=== PATIENT | male | born 1930 | race Hispanic/Latino ===

== ENCOUNTER 2017-12-19 16:41 | Emergency (ER) | payer OTHER ==
[2017-12-19 18:04] LABS: APPEARANCE,URINE Clear (CLEAR); BILIRUBIN,URINE Negative (NEGATIVE); COLOR,URINE Yellow (YELLOW); GLUCOSE, URINE (UA) Negative (NEGATIVE); KETONES,URINE Negative (NEGATIVE); LEUKOCYTE ESTERASE ,URINE Trace (NEGATIVE); NITRATE,URINE Negative (NEGATIVE); OCCULT BLOOD,URINE Negative (NEGATIVE); PROTEIN,URINE Negative (NEGATIVE); UROBILINOGEN,URINE 0.2 mg/dL (0.2-1.0)
[2017-12-19 18:15] LABS: BACTERIA,URINE Rare /HPF (None Seen); RBC,URINE None Seen /HPF (0-1); WBC,URINE 0-1 /HPF (0-1)
[2017-12-19 18:39] LABS: BASOPHILS % (AUTO) 2.5 % (0.0-5.0); HEMATOCRIT 32.7 % (42-54); LYMPHOCYTES % (AUTO) 25.4 % (21.0-51.0); MEAN CORPUSCULAR HEMOGLOBIN 28.7 pg (27.0-33.0); MEAN CORPUSCULAR HGB CONC 32.1 g/dL (32.0-36.0); MEAN CORPUSCULAR VOLUME 89.6 fL (79-99); NEUTROPHILS % (AUTO) 58.1 % (40.0-77.0); NUCLEATED RED BLOOD CELLS 0.1 % (0.0-0.19); PLATELET COUNT (AUTO) 245 K/uL (130-400); RED BLOOD CELL COUNT(AUTO) 3.65 MIL/uL (4.50-6.20); RED CELL DISTRIBUTION WIDTH 14.3 % (11.0-15.5)
[2017-12-19 18:53] LABS: CREATININE 0.9 mg/dL (0.5-1.5)
[2017-12-19 18:58] LABS: ALBUMIN 2.9 g/dL (3.5-5.0); BILIRUBIN,TOTAL 0.2 mg/dL (0.2-1.0); TOTAL PROTEIN, SERUM 7.1 g/dL (6.0-8.3)
== END 2017-12-19 20:52 | disposition home or self-care (01) ==
LOC: EDH 16:41
DX: K59.00 Constipation, unspecified (principal); I10 Essential (primary) hypertension; E78.5 Hyperlipidemia, unspecified; Z87.442 Personal history of urinary calculi; F03.90 Unspecified dementia, unspecified severity, without behavioral disturbance, psychotic disturbance, mood disturbance, and anxiety
CPT/HCPCS: 36415; 74176; 80053; 81001; 85025

== ENCOUNTER 2018-01-06 09:33 | Emergency (ER) | payer OTHER ==
[2018-01-06 09:56] LABS: EOSINOPHILS % (AUTO) 1.7 % (0.0-8.0); HEMATOCRIT 29.7 % (42-54); MEAN CORPUSCULAR HEMOGLOBIN 28.7 pg (27.0-33.0); MEAN CORPUSCULAR HGB CONC 32.8 g/dL (32.0-36.0); MEAN CORPUSCULAR VOLUME 87.4 fL (79-99); MONOCYTES % (AUTO) 6.8 % (3.0-13.0); NEUTROPHILS % (AUTO) 69.5 % (40.0-77.0); PLATELET COUNT (AUTO) 178 K/uL (130-400); RED CELL DISTRIBUTION WIDTH 14.6 % (11.0-15.5); WHITE BLOOD COUNT (AUTO) 4.3 K/uL (4.8-10.8)
[2018-01-06 10:01] LABS: CREATININE 1.1 mg/dL (0.5-1.5); POTASSIUM 4.2 mmol/L (3.5-5.1)
[2018-01-06 10:06] LABS: ALBUMIN 2.7 g/dL (3.5-5.0); BILIRUBIN,TOTAL 0.5 mg/dL (0.2-1.0); TOTAL PROTEIN, SERUM 6.7 g/dL (6.0-8.3)
[2018-01-06 10:10] LABS: APPEARANCE,URINE Cloudy (CLEAR); BILIRUBIN,URINE Negative (NEGATIVE); COLOR,URINE Yellow (YELLOW); GLUCOSE, URINE (UA) Negative (NEGATIVE); KETONES,URINE Negative (NEGATIVE); LEUKOCYTE ESTERASE ,URINE Trace (NEGATIVE); NITRATE,URINE Negative (NEGATIVE); OCCULT BLOOD,URINE Negative (NEGATIVE); PROTEIN,URINE POS 1+ (NEGATIVE); UROBILINOGEN,URINE 0.2 mg/dL (0.2-1.0)
[2018-01-06 10:30] LABS: BACTERIA,URINE Rare /HPF (None Seen); RBC,URINE None Seen /HPF (0-1); SQUAMOUS EPITHELIAL CELL,UR Few /HPF (0-2); WBC,URINE 0-1 /HPF (0-1)
[2018-01-06 10:31] LABS: AMORPHOUS SEDIMENT,UR Few /LPF (None Seen)
== END 2018-01-06 12:46 | disposition home or self-care (01) ==
LOC: EDH 09:33
DX: N39.8 Other specified disorders of urinary system (principal); D64.9 Anemia, unspecified; G30.9 Alzheimer's disease, unspecified; F02.80 Dementia in other diseases classified elsewhere, unspecified severity, without behavioral disturbance, psychotic disturbance, mood disturbance, and anxiety; I25.10 Atherosclerotic heart disease of native coronary artery without angina pectoris; E78.5 Hyperlipidemia, unspecified; I10 Essential (primary) hypertension; Z87.442 Personal history of urinary calculi; Z88.6 Allergy status to analgesic agent; Z79.899 Other long term (current) drug therapy
CPT/HCPCS: 36415; 80053; 81001; 85025

== ENCOUNTER 2018-01-07 09:56 | Inpatient (IN) | payer OTHER ==
[~2018-01-07] VITALS: Ht 157.5 cm; Wt 62.7 kg
[2018-01-07 11:11] LABS: BASOPHILS % (AUTO) 0.8 % (0.0-5.0); EOSINOPHILS % (AUTO) 2.2 % (0.0-8.0); HEMATOCRIT 30.9 % (42-54); LYMPHOCYTES % (AUTO) 13.2 % (21.0-51.0); MEAN CORPUSCULAR HEMOGLOBIN 29.1 pg (27.0-33.0); MEAN CORPUSCULAR HGB CONC 33.3 g/dL (32.0-36.0); MEAN CORPUSCULAR VOLUME 87.5 fL (79-99); MONOCYTES % (AUTO) 5.4 % (3.0-13.0); NEUTROPHILS % (AUTO) 78.4 % (40.0-77.0); NUCLEATED RED BLOOD CELLS 0.1 % (0.0-0.19); PLATELET COUNT (AUTO) 212 K/uL (130-400); RED BLOOD CELL COUNT(AUTO) 3.53 MIL/uL (4.50-6.20); RED CELL DISTRIBUTION WIDTH 14.9 % (11.0-15.5); WHITE BLOOD COUNT (AUTO) 5.7 K/uL (4.8-10.8)
[2018-01-07 11:13] LABS: ALBUMIN 2.6 g/dL (3.5-5.0); BILIRUBIN,TOTAL 0.7 mg/dL (0.2-1.0); TOTAL PROTEIN, SERUM 7.2 g/dL (6.0-8.3)
[2018-01-07 11:49] LABS: APPEARANCE,URINE Clear (CLEAR); BILIRUBIN,URINE Negative (NEGATIVE); COLOR,URINE Yellow (YELLOW); GLUCOSE, URINE (UA) Negative (NEGATIVE); KETONES,URINE Trace mg/dL (NEGATIVE); LEUKOCYTE ESTERASE ,URINE Negative (NEGATIVE); NITRATE,URINE Negative (NEGATIVE); OCCULT BLOOD,URINE Small (NEGATIVE); PROTEIN,URINE POS 1+ (NEGATIVE)
[2018-01-07 12:00] LABS: BACTERIA,URINE Rare /HPF (None Seen); MUCUS,URINE Few LPF (None Seen); WBC,URINE None Seen /HPF (0-1)
[2018-01-07] MEDS ORDERED: ZOSYN 3.375GM+NS 50ML 50 ML IV ONE (13:07)
[2018-01-07] MEDS ORDERED: SODIUM CHLORIDE 0.9% 100 ML IV ONE (13:08)
[2018-01-07] MEDS: SODIUM CHLORIDE 0.9% 1000ML 1,000 ML IV SCH (14:10)
[2018-01-07] MEDS ORDERED: MEPERIDINE-PF 25 MG/ML SYG IV PRN (14:15)
[2018-01-07] MEDS ORDERED: SODIUM CHLORIDE 0.9% 1000ML 1,000 ML IV ONE (15:52)
[2018-01-07] MEDS ORDERED: ENOXAPARIN SODIUM 30 MG/0.3 ML SQ ONE (15:52)
[2018-01-07] MEDS ORDERED: PANTOPRAZOLE SODIUM 40 MG TABLET.DR PO ONE (15:53)
[2018-01-07] MEDS: FAMOTIDINE/PF 20 MG/2 ML VIAL IV SCH (21:00)
[2018-01-07] MEDS: METRONIDAZOLE 500MG/100ML BAG 100 ML IV SCH (21:00)
[2018-01-07] MEDS ORDERED: METRONIDAZOLE 500MG/100ML BAG 100 ML ONE (21:25)
[2018-01-07] MEDS ORDERED: FAMOTIDINE/PF 20 MG/2 ML VIAL IV ONE (21:25)
[2018-01-07] MEDS: ZOSYN 3.375GM+NS 50ML 50 ML IV SCH (22:00)
[2018-01-07 22:06] VITALS: BP 154/94
[2018-01-07] MEDS: LEVOFLOXACIN 500 MG/D5W 100 ML 100 ML IV SCH (23:29)
[2018-01-07 23:42] VITALS: BP 128/67
[2018-01-08] VITALS (7 sets, daily range): BP systolic 102–125; BP diastolic 50–68
[2018-01-08] MEDS: METRONIDAZOLE 500MG/100ML BAG 100 ML IV SCH ×2 (03:51→12:53)
[2018-01-08 04:09] LABS: BASOPHILS % (AUTO) 0.8 % (0.0-5.0); EOSINOPHILS % (AUTO) 0.8 % (0.0-8.0); HEMATOCRIT 28.3 % (42-54); LYMPHOCYTES % (AUTO) 12.4 % (21.0-51.0); MEAN CORPUSCULAR HEMOGLOBIN 29.1 pg (27.0-33.0); MEAN CORPUSCULAR HGB CONC 33.5 g/dL (32.0-36.0); MEAN CORPUSCULAR VOLUME 86.9 fL (79-99); MONOCYTES % (AUTO) 8.7 % (3.0-13.0); NEUTROPHILS % (AUTO) 77.3 % (40.0-77.0); PLATELET COUNT (AUTO) 214 K/uL (130-400); RED BLOOD CELL COUNT(AUTO) 3.26 MIL/uL (4.50-6.20); RED CELL DISTRIBUTION WIDTH 14.8 % (11.0-15.5); WHITE BLOOD COUNT (AUTO) 4.9 K/uL (4.8-10.8)
[2018-01-08 04:20] LABS: ALBUMIN 2.3 g/dL (3.5-5.0); BILIRUBIN,TOTAL 0.4 mg/dL (0.2-1.0); POTASSIUM 3.7 mmol/L (3.5-5.1); TOTAL PROTEIN, SERUM 6.5 g/dL (6.0-8.3)
[2018-01-08] MEDS: ZOSYN 3.375GM+NS 50ML 50 ML IV SCH (04:44)
[2018-01-08] MEDS ORDERED: PANTOPRAZOLE SODIUM 40 MG TABLET.DR PO SCH (09:00)
[2018-01-08] MEDS: FAMOTIDINE/PF 20 MG/2 ML VIAL IV SCH ×2 (09:19→21:25)
[2018-01-08] MEDS: ENOXAPARIN SODIUM 30 MG/0.3 ML SQ SCH (09:19)
[2018-01-08] MEDS ORDERED: ZOSYN 3.375GM+NS 50ML 50 ML IV SCH (13:00)
[2018-01-08] MEDS ORDERED: ISOS30TA6 PO (16:32)
[2018-01-08] MEDS ORDERED: DONE5TAB33 PO (16:32)
[2018-01-08] MEDS ORDERED: TAMS0.4C32 PO (16:32)
[2018-01-08] MEDS ORDERED: PRAV80TA21 PO (16:32)
[2018-01-08] MEDS ORDERED: TRAZ-187 PO (16:32)
[2018-01-08] MEDS ORDERED: PARO30TA60 PO (16:32)
[2018-01-08] MEDS ORDERED: ALLO100T PO (16:32)
[2018-01-08] MEDS ORDERED: TRAZODONE HCL 100 MG TABLET PO SCH (21:00)
[2018-01-08] MEDS: Pravastatin Sodium 80 MG PO SCH (21:00)
[2018-01-08] MEDS: LEVOFLOXACIN 500 MG/D5W 100 ML 100 ML IV SCH (21:24)
[2018-01-08] MEDS: TAMSULOSIN HCL 0.4 MG CAP.ER.24H PO SCH (21:25)
[2018-01-08] MEDS: SODIUM CHLORIDE 0.9% 1000ML 1,000 ML IV SCH (21:25)
[2018-01-08] MEDS: PAROXETINE HCL 20 MG TABLET PO SCH (21:27)
[2018-01-08] MEDS: LIDOCAINE 5% TOPICAL PATCH TP SCH (23:18)
[2018-01-09 03:00] VITALS: BP 122/65
[2018-01-09 04:18] LABS: HEMATOCRIT 28.2 % (42-54); MEAN CORPUSCULAR HEMOGLOBIN 29.2 pg (27.0-33.0); MEAN CORPUSCULAR HGB CONC 33.3 g/dL (32.0-36.0); MEAN CORPUSCULAR VOLUME 87.8 fL (79-99); PLATELET COUNT (AUTO) 246 K/uL (130-400); RED BLOOD CELL COUNT(AUTO) 3.22 MIL/uL (4.50-6.20); RED CELL DISTRIBUTION WIDTH 14.8 % (11.0-15.5); WHITE BLOOD COUNT (AUTO) 4.4 K/uL (4.8-10.8)
[2018-01-09 04:32] LABS: INR 1.13 (0.85-1.15); PARTIAL THROMBOPLASTIN TIME 37.7 SEC (26.3-35.5); PROTHROMBIN TIME 11.8 SEC (9.6-11.6)
[2018-01-09 04:35] LABS: ALBUMIN 2.2 g/dL (3.5-5.0); BILIRUBIN,TOTAL 0.4 mg/dL (0.2-1.0); POTASSIUM 3.6 mmol/L (3.5-5.1); TOTAL PROTEIN, SERUM 6.3 g/dL (6.0-8.3)
[2018-01-09 08:00] VITALS: BP 147/67
[2018-01-09] MEDS: FAMOTIDINE/PF 20 MG/2 ML VIAL IV SCH ×2 (08:19→21:49)
[2018-01-09] MEDS: PAROXETINE HCL 20 MG TABLET PO SCH ×2 (08:19→21:50)
[2018-01-09] MEDS: ALLOPURINOL 100 MG TABLET PO SCH (08:19)
[2018-01-09] MEDS: DONEPEZIL HCL 5 MG TAB PO SCH (08:20)
[2018-01-09] MEDS: ISOSORBIDE MONO 30MG TAB SR PO SCH (08:20)
[2018-01-09] MEDS: ENOXAPARIN SODIUM 30 MG/0.3 ML SQ SCH (08:21)
[2018-01-09] MEDS: SODIUM CHLORIDE 0.9% 1000ML 1,000 ML IV SCH (10:43)
[2018-01-09 12:00] VITALS: BP 119/52
[2018-01-09 16:30] VITALS: BP 121/61
[2018-01-09] MEDS: LIDOCAINE 5% TOPICAL PATCH TP SCH (17:45)
[2018-01-09 20:14] VITALS: BP 122/60
[2018-01-09] MEDS: Pravastatin Sodium 80 MG PO SCH (21:00)
[2018-01-09] MEDS: TAMSULOSIN HCL 0.4 MG CAP.ER.24H PO SCH (21:50)
[2018-01-09] MEDS: LEVOFLOXACIN 500 MG/D5W 100 ML 100 ML IV SCH (21:50)
[2018-01-09] MEDS: TRAMADOL /APAP 37.5MG/325MG TAB PO PRN (22:07)
[2018-01-09] MEDS ORDERED: GLUCAGON 1MG KIT 1 MG ML IM PRN (22:45)
[2018-01-09] MEDS ORDERED: DEXTROSE 50%-WATER 50 ML DISP.SYRIN IV PRN (22:45)
[2018-01-10] VITALS (7 sets, daily range): BP systolic 106–122; BP diastolic 54–74
[2018-01-10] MEDS: SODIUM CHLORIDE 0.9% 1000ML 1,000 ML IV SCH (02:10)
[2018-01-10] MEDS: INSULIN HUMULIN R 100 UNIT/ML 3ML SQ SCH ×3 (07:19→20:27)
[2018-01-10] MEDS: LACTULOSE 20 GM/30 ML UDCUP PO SCH ×2 (07:29→20:25)
[2018-01-10] MEDS ORDERED: LORAZEPAM 2 MG/ML 1 ML VIAL IM SCH (09:00)
[2018-01-10] MEDS: FAMOTIDINE/PF 20 MG/2 ML VIAL IV SCH ×2 (09:08→20:40)
[2018-01-10] MEDS: DONEPEZIL HCL 5 MG TAB PO SCH (09:08)
[2018-01-10] MEDS: PAROXETINE HCL 20 MG TABLET PO SCH ×2 (09:08→20:40)
[2018-01-10] MEDS: ALLOPURINOL 100 MG TABLET PO SCH (09:08)
[2018-01-10] MEDS: ISOSORBIDE MONO 30MG TAB SR PO SCH (09:08)
[2018-01-10] MEDS: ENOXAPARIN SODIUM 30 MG/0.3 ML SQ SCH (09:10)
[2018-01-10] MEDS ORDERED: GADODIAMIDE 5 MMOL/10 ML VIAL 5 MMOL/10 ML ML IV ONE (12:23)
[2018-01-10] MEDS ORDERED: LACTULOSE 20 GM/30 ML UDCUP PO SCH (20:00)
[2018-01-10] MEDS: LEVOFLOXACIN 500 MG/D5W 100 ML 100 ML IV SCH (20:40)
[2018-01-10] MEDS: TAMSULOSIN HCL 0.4 MG CAP.ER.24H PO SCH (20:40)
[2018-01-10] MEDS: Pravastatin Sodium 80 MG PO SCH (20:52)
[2018-01-10] MEDS: TRAMADOL /APAP 37.5MG/325MG TAB PO PRN (20:55)
[2018-01-11] MEDS: SODIUM CHLORIDE 0.9% 1000ML 1,000 ML IV SCH (02:06)
[2018-01-11 04:35] VITALS: BP 123/61
[2018-01-11] MEDS: INSULIN HUMULIN R 100 UNIT/ML 3ML SQ SCH ×2 (05:47→11:30)
[2018-01-11] MEDS: TRAMADOL /APAP 37.5MG/325MG TAB PO PRN ×2 (05:54→13:04)
[2018-01-11 07:30] VITALS: BP 115/64
[2018-01-11] MEDS: FAMOTIDINE/PF 20 MG/2 ML VIAL IV SCH (09:15)
[2018-01-11] MEDS: ALLOPURINOL 100 MG TABLET PO SCH (09:16)
[2018-01-11] MEDS: ISOSORBIDE MONO 30MG TAB SR PO SCH (09:16)
[2018-01-11] MEDS: DONEPEZIL HCL 5 MG TAB PO SCH (09:16)
[2018-01-11] MEDS: PAROXETINE HCL 20 MG TABLET PO SCH (09:17)
[2018-01-11] MEDS: ENOXAPARIN SODIUM 30 MG/0.3 ML SQ SCH (09:18)
[2018-01-11 10:43] VITALS: BP 95/56
[2018-01-11] MEDS ORDERED: FAMOTIDINE/PF 20 MG/2 ML VIAL IV SCH (13:29)
[2018-01-11] MEDS ORDERED: KETOROLAC TROMETHAMINE 15MG/ML IV ONE (14:20)
== END 2018-01-11 17:25 | disposition hospice, home (50) | DRG 542 ==
LOC: EDH 09:56 → EDHIP 14:10 → 2DH 22:03 → 4AH 01-08 18:49
PROVIDERS: ADMIT Hospitalist; ATTEND Hospitalist
DX: M48.54XA Collapsed vertebra, not elsewhere classified, thoracic region, initial encounter for fracture (principal); R53.2 Functional quadriplegia; K83.09 Other cholangitis; I31.3 Pericardial effusion (noninflammatory); E44.0 Moderate protein-calorie malnutrition; G30.9 Alzheimer's disease, unspecified; N40.0 Benign prostatic hyperplasia without lower urinary tract symptoms; I25.10 Atherosclerotic heart disease of native coronary artery without angina pectoris; Z66 Do not resuscitate; K44.9 Diaphragmatic hernia without obstruction or gangrene; N28.1 Cyst of kidney, acquired; K57.90 Diverticulosis of intestine, part unspecified, without perforation or abscess without bleeding; N32.3 Diverticulum of bladder; R53.81 Other malaise; E11.9 Type 2 diabetes mellitus without complications; E78.2 Mixed hyperlipidemia; F02.80 Dementia in other diseases classified elsewhere, unspecified severity, without behavioral disturbance, psychotic disturbance, mood disturbance, and anxiety; I11.9 Hypertensive heart disease without heart failure; M19.90 Unspecified osteoarthritis, unspecified site; M81.0 Age-related osteoporosis without current pathological fracture; Z74.01 Bed confinement status; Z86.73 Personal history of transient ischemic attack (TIA), and cerebral infarction without residual deficits; Z68.25 Body mass index [BMI] 25.0-25.9, adult; Z88.8 Allergy status to other drugs, medicaments and biological substances
CPT/HCPCS: 36415; 70553; 72131; 74176; 80053; 81001; 82948; 83036; 83690; 84484; 85025; 85027; 85610; 85730; 93005; A9579; J1650; J1885; J1956; J2060; J2543; J3490; J7030